=== PATIENT | male | born 1980 | race African-American/Black ===

== ENCOUNTER → 2017-07-05 | Emergency (ER) | payer OTHER ==
[~2017-07-05] VITALS: Ht 188 cm; Wt 99.8 kg
[~2017-07-05] MED LIST: ALKA-SELTZER E500 M1; AMOXICILLIN 50500 M1 PO; AUGMENTIN 875875 MG PO; CIPROFLOXACIN500 M1 PO; COLCHICINE0.6 M1 PO; COLCHICINE0.6 MG PO; HYDROCODONE-AP1 EAC6 PO; IBUPROFEN 800800 M1 PO; INDOMETHACIN 2525 MG PO; INDOMETHACIN 5050 M1 PO; INDOMETHACIN 5050 MG; INDOMETHACIN 5050 MG PO; NORCO 5-325 TA1 EACH PO; PERCOCET 5-3251 EACH PO; PREDNISONE 10 M10 MG PO; PREDNISONE 20 M20 MG PO; PREDNISONE50 MG PO
[2017-07-05 17:29] VITALS: BP 129/81
== END ==
LOC: ER 17:27
DX: M10.061 Idiopathic gout, right knee (principal); F17.210 Nicotine dependence, cigarettes, uncomplicated; F10.99 Alcohol use, unspecified with unspecified alcohol-induced disorder

== ENCOUNTER 2017-07-17 19:21 | Emergency (ER) | payer OTHER ==
[~2017-07-17] VITALS: Ht 190.5 cm; Wt 99.8 kg
[2017-07-17 21:29] LABS: MANUAL DIFF YES
[2017-07-17 21:30] LABS: BF NUCLEATED CELLS 9591; BF RBC 650; CLARITY CLOUDY; COLOR YELLOW; TOTAL VOLUME 70 mL
[2017-07-17] MEDS ORDERED: NORCO 5-325 TA1 EACH PO (21:42)
[2017-07-17] MEDS ORDERED: COLCHICINE0.6 MG PO (21:42)
[2017-07-17] MEDS ORDERED: PREDNISONE 20 M20 MG PO (21:42)
[2017-07-17 21:46] LABS: BF CRYSTALS No Crystals seen
[2017-07-17 22:08] VITALS: BP 123/77
[2017-07-17 22:51] LABS: BF MACROPHAGE 2; BF NEUTROPHILS 96
[2017-07-18 07:07] LABS: BODY FLUID GLUCOSE 118 mg/dL (()); BODY FLUID PROTEIN 3.7 g/dL (())
== END 2017-07-17 22:08 | disposition home or self-care (01) ==
LOC: ER 19:21
PROVIDERS: Emergency Medicine
DX: M10.061 Idiopathic gout, right knee (principal); F10.99 Alcohol use, unspecified with unspecified alcohol-induced disorder; Z87.39 Personal history of other diseases of the musculoskeletal system and connective tissue; Z87.891 Personal history of nicotine dependence

== ENCOUNTER 2017-12-17 17:33 | Emergency (ER) | payer OTHER ==
[~2017-12-17] VITALS: Ht 188 cm; Wt 99.8 kg
[2017-12-17] MEDS ORDERED: AMOXICILLIN 50500 MG PO (17:47)
== END 2017-12-17 19:01 | disposition home or self-care (01) ==
LOC: ER 17:33
DX: S60.011A Contusion of right thumb without damage to nail, initial encounter (principal); M10.9 Gout, unspecified; W23.0XXA Caught, crushed, jammed, or pinched between moving objects, initial encounter; Y93.89 Activity, other specified; Y92.89 Other specified places as the place of occurrence of the external cause; Y99.8 Other external cause status

== ENCOUNTER 2018-08-06 09:42 | Emergency (ER) | payer OTHER ==
[~2018-08-06] VITALS: Ht 188 cm; Wt 97.5 kg
[~2018-08-06 09:42] MED LIST changes: +AMOXICILLIN 50500 MG PO
[2018-08-06 09:44] VITALS: BP 154/91
[2018-08-06] MEDS ORDERED: INDOMETHACIN 5050 M1 PO (10:20)
[2018-08-06] MEDS ORDERED: COLCHICINE0.6 MG PO (10:20)
[2018-08-06] MEDS ORDERED: ALLOPURINOL 10100 M1 PO (10:20)
[2018-08-06] MEDS ORDERED: PREDNISONE 10 M10 MG PO (10:20)
== END 2018-08-06 10:45 | disposition home or self-care (01) ==
LOC: ER 09:42
DX: M10.062 Idiopathic gout, left knee (principal); M76.9 Unspecified enthesopathy, lower limb, excluding foot; Z87.891 Personal history of nicotine dependence

== ENCOUNTER 2018-10-31 19:40 | Emergency (ER) | payer OTHER ==
[~2018-10-31] VITALS: Ht 188 cm; Wt 99.8 kg
[~2018-10-31 19:40] MED LIST changes: +ALLOPURINOL 10100 M1 PO
[2018-10-31 20:32] LABS: CALCIUM 9.4 mg/dL (8.5-10.1); CREATININE 1.2 mg/dL (0.7-1.3); POTASSIUM 3.9 mmol/L (3.5-5.1)
[2018-10-31 20:36] LABS: URIC ACID* 7.4 mg/dL (2.6-7.2)
[2018-10-31] MEDS ORDERED: INDOMETHACIN 5050 M1 PO (20:55)
[2018-10-31] MEDS ORDERED: COLCHICINE0.6 MG PO (20:55)
[2018-10-31 21:18] VITALS: BP 141/83
== END 2018-10-31 21:19 | disposition home or self-care (01) ==
LOC: ER 19:40
PROVIDERS: Physician Assistant
DX: M10.062 Idiopathic gout, left knee (principal); Z87.891 Personal history of nicotine dependence

== ENCOUNTER 2018-11-15 17:13 | Emergency (ER) | payer OTHER ==
[~2018-11-15] VITALS: Ht 188 cm; Wt 97.5 kg
[2018-11-15] MEDS ORDERED: COLCHICINE0.6 MG PO (17:41)
[2018-11-15] MEDS ORDERED: PREDNISONE 20 M20 MG PO (17:41)
[2018-11-15 17:55] VITALS: BP 136/84
== END 2018-11-15 17:45 | disposition home or self-care (01) ==
LOC: ER 17:13
DX: M25.571 Pain in right ankle and joints of right foot (principal); M25.461 Effusion, right knee; Z87.39 Personal history of other diseases of the musculoskeletal system and connective tissue; Z87.891 Personal history of nicotine dependence

== ENCOUNTER 2019-03-16 12:00 | Emergency (ER) | payer OTHER ==
[~2019-03-16] VITALS: Ht 188 cm; Wt 97.5 kg
[2019-03-16 12:50] LABS: BASOPHILS 0.9 % (0.0-2.0); EOSINOPHILS 2.5 % (0.0-3.0); HEMATOCRIT 41.8 % (42.0-52.0); HEMOGLOBIN 14.3 gm/dL (14.0-18.0); LYMPHOCYTES 38.1 % (24.0-44.0); MCH 30.6 pg (26.0-34.0); MCHC 34.3 g/dL (28.0-37.0); MCV 89.3 fL (80.0-100.0); MONOCYTES 6.3 % (1.0-8.0); PLATELET COUNT 206 thou/uL (150-400); POLYS 52.2 % (36.0-66.0); RBC 4.68 mil/uL (4.50-6.00); RDW 13.4 % (10.5-14.5); WBC 7.7 thou/uL (4.0-11.0)
[2019-03-16 12:54] LABS: CALCIUM 9.1 mg/dL (8.5-10.1); CREATININE 0.9 mg/dL (0.7-1.3)
[2019-03-16 13:00] LABS: ALBUMIN 3.8 g/dL (3.4-5.0); TOTAL BILIRUBIN 0.4 mg/dL (<0.1-1.0); TOTAL PROTEIN 7.3 g/dL (6.4-8.2); URIC ACID* 7.2 mg/dL (2.6-7.2)
[2019-03-16] MEDS ORDERED: PREDNISONE 20 M20 MG PO (13:22)
[2019-03-16] MEDS ORDERED: NORCO 5-325 TA1 EACH PO (13:22)
[2019-03-16] MEDS ORDERED: INDOMETHACIN 2525 MG PO (13:22)
[2019-03-16 13:39] VITALS: BP 129/88
== END 2019-03-16 13:46 | disposition home or self-care (01) ==
LOC: ER 12:00
PROVIDERS: Emergency Medicine
DX: M10.071 Idiopathic gout, right ankle and foot (principal); Z87.891 Personal history of nicotine dependence

== ENCOUNTER 2019-07-01 07:55 | Emergency (ER) | payer OTHER ==
[~2019-07-01] VITALS: Ht 188 cm; Wt 99.8 kg
[2019-07-01 08:18] VITALS: BP 142/78
[2019-07-01] MEDS ORDERED: KEFLEX500 M1 PO (08:23)
== END 2019-07-01 08:24 | disposition home or self-care (01) ==
LOC: ER 07:55
DX: L03.213 Periorbital cellulitis (principal); M10.9 Gout, unspecified; Z87.891 Personal history of nicotine dependence

== ENCOUNTER 2019-08-14 21:00 | Emergency (ER) | payer OTHER ==
[~2019-08-14] VITALS: Ht 188 cm; Wt 97.5 kg
[~2019-08-14 21:00] MED LIST changes: +KEFLEX500 M1 PO
[2019-08-14 21:02] VITALS: BP 149/100
[2019-08-14] MEDS ORDERED: NORCO 5-325 TA1 EAC1 PO (21:20)
[2019-08-14] MEDS ORDERED: PREDNISONE 20 M20 MG PO (21:20)
[2019-08-14] MEDS ORDERED: MITIGARE0.6 MG PO (21:20)
== END 2019-08-14 21:36 | disposition home or self-care (01) ==
LOC: ER 21:00
DX: M10.9 Gout, unspecified (principal); M79.672 Pain in left foot; Z87.891 Personal history of nicotine dependence

== ENCOUNTER 2020-06-16 19:57 | Emergency (ER) | payer OTHER ==
[~2020-06-16] VITALS: Ht 188 cm; Wt 90.7 kg
[~2020-06-16 19:57] MED LIST changes: +MITIGARE0.6 MG PO; +NORCO 5-325 TA1 EAC1 PO
[2020-06-16] MEDS ORDERED: PREDNISONE 10 M10 M1 PO (21:35)
[2020-06-16] MEDS ORDERED: MITIGARE0.6 MG PO (21:35)
[2020-06-16] MEDS ORDERED: INDOMETHACIN 2525 MG PO (21:35)
[2020-06-16] MEDS ORDERED: NORCO 10-325 T1 EACH PO (21:35)
[2020-06-16 21:51] VITALS: BP 110/69
== END 2020-06-16 21:52 | disposition home or self-care (01) ==
LOC: ER 19:57
DX: M10.9 Gout, unspecified (principal); F17.210 Nicotine dependence, cigarettes, uncomplicated

== ENCOUNTER 2020-11-03 20:28 | Emergency (ER) | payer OTHER ==
[~2020-11-03] VITALS: Ht 188 cm; Wt 99.8 kg
[~2020-11-03 20:28] MED LIST changes: +NORCO 10-325 T1 EACH PO; +PREDNISONE 10 M10 M1 PO
[2020-11-03 20:31] VITALS: BP 133/77
[2020-11-03] MEDS ORDERED: NORCO 10-325 T1 EACH PO (21:01)
[2020-11-03] MEDS ORDERED: PREDNISONE 20 M20 M1 PO (21:01)
[2020-11-03] MEDS ORDERED: INDOMETHACIN 2525 MG PO (21:01)
== END 2020-11-03 21:15 | disposition home or self-care (01) ==
LOC: ER 20:28
DX: M10.9 Gout, unspecified (principal); M25.561 Pain in right knee; Z87.891 Personal history of nicotine dependence; Z79.899 Other long term (current) drug therapy

== ENCOUNTER 2021-06-15 16:09 | Emergency (ER) | payer OTHER ==
[~2021-06-15] VITALS: Ht 188 cm; Wt 97.5 kg
[~2021-06-15 16:09] MED LIST changes: +PREDNISONE 20 M20 M1 PO
[2021-06-15 16:20] VITALS: BP 122/77
[2021-06-15] MEDS ORDERED: ALLOPURINOL 10100 M1 PO (16:23)
== END 2021-06-15 18:46 | disposition home or self-care (01) ==
LOC: ER 16:09
DX: S61.213A Laceration without foreign body of left middle finger without damage to nail, initial encounter (principal); Z87.891 Personal history of nicotine dependence; W31.1XXA Contact with metalworking machines, initial encounter; Y93.89 Activity, other specified; Y92.89 Other specified places as the place of occurrence of the external cause; Y99.8 Other external cause status